=== PATIENT | female | born 1990 | race African-American/Black ===

== ENCOUNTER 2017-03-26 13:19 | Inpatient (IN) | payer MEDICAID, OTHER ==
[2017-03-26] MEDS ORDERED: Morphine 4 MG/ML VIAL ONE ×2 (15:29→18:07)
[2017-03-26 15:43] LABS: #Eosinphils 0.1 thou/uL (0.0-0.7); #Lymphocytes 1.5 thou/uL (1.20-3.40); #Monocytes 0.4 thou/uL (0.11-0.59); %Basophils 0.2 % (0.0-1.0); %Eosinophils 1.1 % (0.0-10.0); %Lymphocytes 14.9 % (21.0-51.0); %Monocytes 3.8 % (0.0-10.0); Hemoglobin 11.7 g/dL (12.0-16.0); Mean Platelet Volume 7.4 fL (7.4-10.4); Platelet Count 218 thou/uL (130-400); RBC Distribution Width 11.9 % (11.5-14.5); Red Blood Cell (RBC) Count 3.65 mill/uL (4.20-5.40)
[2017-03-26 16:03] LABS: ALT (SGPT) 8 U/L (8-55); AST (SGOT) 7 U/L (5-34); Albumin 3.6 g/dL (3.5-5.0); Alkaline Phosphatase 104 U/L (40-150); Anion Gap 13 mmol/L (10-20); BUN (Urea Nitrogen) 5 mg/dL (7.0-18.7); Bilirubin, Total 0.3 mg/dL (0.2-1.2); Calc. Creatinine Clearance 0 mL/min (70-130); Calcium 9.5 mg/dL (7.8-10.44); Carbon Dioxide 20 mmol/L (22-29); Chloride 105 mmol/L (98-107); Estimated GFR-MDRD Greater than 90; Globulin 3.9 g/dL (2.4-3.5); Glucose 203 mg/dL (70-105); Potassium 3.7 mmol/L (3.5-5.1); Protein, Total 7.5 g/dL (6.0-8.3); Sodium 134 mmol/L (136-145)
[2017-03-26] MEDS ORDERED: Clindamycin/D5W 900 mg/50 ml Premix Bag ONE (17:38)
[2017-03-26] MEDS ORDERED: Lidocaine 1% (PF) 30 ML VIAL ONE (17:54)
[2017-03-26] MEDS ORDERED: Piperacillin/Tazobactam 3.375 GM in Sodium Chloride 0.9% 100 ML IVPB ONE (18:00)
[2017-03-26 18:07] LABS: Bilirubin Negative (Negative); Blood, Urine Negative (Negative); Clarity CLOUDY (Clear); Glucose, Urine (Dipstick) 250 mg/dL (Negative); Leukocyte Moderate (Negative); Nitrite Negative (Negative); Protein, Urine (Dipstick) Negative (Neg-Trace); Specific Gravity, Urine 1.027 (1.002-1.036)
[2017-03-26 18:10] LABS: Bacteria/HPF 4+ HPF (None Seen); Hyaline Casts/LPF 4-6 HYALINE CAST LPF (0-3 Hyaline); Pathc Cast-AUWi Flag 1.49 (0-2.49); RBC/HPF 0-3 HPF (0-3); Squamous Epithelial 21-50 HPF (0-3)
[2017-03-26 18:20] LABS: Lactic Acid 1.4 mmol/L (0.5-2.2)
[2017-03-26] MEDS ORDERED: Dextrose 5% in Water 1,000 ML IV PRN (19:06)
[2017-03-26] MEDS ORDERED: HYDROcodone/Acetaminophen 5/325 mg Tablet PO PRN (19:06)
[2017-03-26] MEDS ORDERED: Dextrose 50% Abboject 50 ML SYRINGE SLOW IVP PRN (19:06)
[2017-03-26] MEDS ORDERED: HumaLOG 300 UNITS/3 ML VIAL SC PRN (19:06)
[2017-03-26] MEDS: Sodium Chloride 0.9% 1,000 ML IV SCH (20:09)
[2017-03-26 20:17] VITALS: BMI 34.8
[2017-03-26] MEDS ORDERED: Insulin Detemir 100 UNITS/ML 10 UNITS in Pre-Filled Syringe SC SCH (21:00)
[2017-03-26] MEDS: HYDROcodone/Acetaminophen 10/325 mg Tablet PO PRN (21:17)
--- NOTE | 2017-03-27 00:15 | CON ---
DATE OF CONSULTATION: 03/26/2017 CONSULTING PHYSICIAN: Katerin Masters MD REASON FOR CONSULTATION: Left axillary abscess. HISTORY OF PRESENT ILLNESS: Patient is a 27-year-old diabetic black female. She presents complainin g of severe axillary pain. She has had a history of bilateral prior axillary infections. She notes severe pain in the left axilla with some drainage. She is diabetic with elevated glucose level of 20 3. She is currently 21 weeks . PHYSICAL EXAMINATION: She is afebrile. Vital signs within normal limits. Her left axilla, there is obvious scarring with some tract and sinuses that are apparent. There is evidence of purulent drain age in some areas. Her findings are very typical with hidradenitis suppurativa. It is diffusely ten keyshawn. There is one area that seems to be little more indurated on the anterior aspect. LABORATORY DATA: CBC reveals white blood cell count of 10.0 with hemoglobin of 11.7. ASSESSMENT: Patient with hidradenitis suppurativa. I attempted aspiration of the wound area that se emed to be of concern and I aspirated no purulent fluid. This is an area of surrounding induration r elated to the chronic infection. There is certainly acute infection as well. There does not appear to be any focal area of abscess that I can discern for which she requires an incision and drainage. For now, the treatment will be antibiotics. Unfortunately, this is a frustrating disease that is chr onic and recurring and sometimes even antibiotics do not help with this. The only long-term treatmen t for this is complete axillary excision which is an unpleasant procedure with oftentimes lengthy rec overy. She is being admitted on IV antibiotics at this time. I will see her if there is an exacerba tion or problem, but right now there is nothing surgical to do for this.
[2017-03-27] MEDS: Clindamycin/D5W 900 MG in Premix Bag 1 BAG IVPB SCH ×2 (00:56→09:35)
[2017-03-27] MEDS ORDERED: TAZOBACTAM IVPB SCH (02:00)
[2017-03-27] MEDS ORDERED: PIPERACILLIN IVPB SCH (02:00)
[2017-03-27] MEDS: Piperacillin/Tazobactam 3.375 GM in Sodium Chloride 0.9% 100 ML IVPB SCH ×2 (02:06→10:54)
[2017-03-27 05:41] LABS: #Eosinphils 0.1 thou/uL (0.0-0.7); #Lymphocytes 1.5 thou/uL (1.20-3.40); #Monocytes 0.5 thou/uL (0.11-0.59); #Neutrophils 7.3 thou/uL (1.40-6.50); %Basophils 0.2 % (0.0-1.0); %Eosinophils 1.2 % (0.0-10.0); %Lymphocytes 15.4 % (21.0-51.0); %Monocytes 5.6 % (0.0-10.0); %Neutrophils 77.6 % (42.0-75.0); Hemoglobin 10.5 g/dL (12.0-16.0); Mean Corpuscular HGB CONC 33.1 g/dL (32.0-36.0); Mean Corpuscular Hemoglobin 31.4 pg (27.0-31.0); Mean Corpuscular Volume 94.8 fl (81.0-99.0); Mean Platelet Volume 7.2 fL (7.4-10.4); Platelet Count 208 thou/uL (130-400); RBC Distribution Width 11.8 % (11.5-14.5); Red Blood Cell (RBC) Count 3.36 mill/uL (4.20-5.40); White Blood Cell (WBC) Count 9.4 thou/uL (4.8-10.8)
[2017-03-27 05:48] LABS: Hemoglobin A1c 6.9 % (4.0-6.0)
[2017-03-27] MEDS: HYDROcodone/Acetaminophen 10/325 mg Tablet PO PRN ×2 (05:54→13:03)
[2017-03-27] MEDS: Sodium Chloride 0.9% 1,000 ML IV SCH (05:55)
[2017-03-27 06:07] LABS: Anion Gap 12 mmol/L (10-20); BUN (Urea Nitrogen) 5 mg/dL (7.0-18.7); Calc. Creatinine Clearance 217 mL/min (70-130); Calcium 8.5 mg/dL (7.8-10.44); Carbon Dioxide 19 mmol/L (22-29); Chloride 108 mmol/L (98-107); Estimated GFR-MDRD Greater than 90; Glucose 133 mg/dL (70-105); Potassium 3.6 mmol/L (3.5-5.1); Sodium 135 mmol/L (136-145)
[2017-03-27] MEDS ORDERED: FLU VACC QS2017-18 36 mo. & older 0.5 ML SYRINGE IM ONE (09:00)
--- NOTE | 2017-03-27 09:57 | PDOC.EVN ---
Event Note - Event Note Event Note: DISCHARGE NOTE 03/26/17 Admit 03/27/17 Discharge Patient admitted by Dr Wagner 03/27 for possible hydradentits at axilla and groin. EGA 20 weeks. On IV dual antibiotics. Dr Sellers has seen the patient and no area to drain. OK for outpatient management. Home with Augmentin BID. Has OBGYN and Endo follow up. EGA 20 weeks. Labs: HgB 6.9, WBC 9.4...Glucose 109 this AM. Physical Exam with no evidence systemic infection. No drainable area. Assessment: Possible OB Hydradenitis. 20 week gestation. Home after 24 hours IV antibiotics. Plan: 1. Outpatient Augmentin 875 BID X 10 days 2. Follow up Thursday with Endo 3. Continue Levemir as directed 4. ADA diet
[2017-03-27 12:09] VITALS: BP 123/67; TEMP 97.9
[2017-03-27] MEDS ORDERED: metFORMIN 500 MG TAB PO SCH (17:00)
--- NOTE | 2017-03-27 22:39 | HP ---
DATE OF SERVICE: 03/26/2017 CHIEF COMPLAINT: Axillary and labial cellulitis versus abscess. HISTORY OF PRESENT ILLNESS: At the time of presentation, Ms. Martínez is a 27-year-old 4, para 3 female at [address] Park for care. She has type 1 diabetes and also has a h istory of section for labor at 28 weeks in her last . Patient has a histor y of abscesses in the left axilla and was treated for that as an outpatient a few months ago with res olution. Patient developed 3-day history of pain in her left axilla region extending medially toward s the chest and down the arm approximately 3 days ago as well as pain in the right labia majora. Pat cameron has not had drainage from either of these locations. She denies any fever or chills. She denie s any cardiovascular or respiratory complaints. She denies any vomiting or diarrhea. She denies any hematuria or dysuria. She denies any usual vaginal discharge, itching, odor, or irritation. She de nies any headache, numbness or paresthesias. REVIEW OF SYSTEMS: Per HPI. PAST MEDICAL HISTORY: Type [address] Reno, Endocrinology. PAST SURGICAL HISTORY: section for labor at 28 weeks and breech. OBSTETRIC HISTORY: 1. Term spontaneous vaginal delivery. 2. Term spontaneous vaginal delivery. 3. section 28 weeks, labor for breech. 4. Current . MEDICATIONS: Levemir insulin 10 units at bedtime. ALLERGIES: No known drug allergies. PHYSICAL EXAMINATION: VITAL SIGNS: Within normal limits. Patient is afebrile. GENERAL: Nontoxic appearing female in no acute distress. HEENT: Normocephalic, atraumatic. LUNGS: Clear to auscultation. CARDIOVASCULAR: Regular rate and rhythm. ABDOMEN: Obese, nontender, no rebound, no guarding. GENITOURINARY: The superior portion of the right labia majora is indurated and tender. Erythema has not appreciated. No area of drainage is noted. Area is nonfluctuant. EXTREMITIES: Left axillary region has been examined and attempted incision and drainage was made by General Surgery without result. Please see his detailed dictation. ASSESSMENT AND PLAN: 1. A 21 week live intrauterine . 2. Type 1 diabetes with recurrent cellulitis in the axillary region and now the right labia as well. Patient has received Zosyn and clindamycin in the emergency department and will maintain her on wit h antibiotics. We will also maintain patient on her insulin, but had a sliding scale to improve her control, she states that her blood sugars have been running in the 200 to 300 range. We will reasses s the labia and if abscess develops an incision and drainage is indicated will be performed.
== END 2017-03-27 14:38 | disposition home or self-care (01) | DRG 781 ==
LOC: ERS 13:19 → 3SW 19:05
PROVIDERS: ADMIT Obstetrics & Gynecology Obstetrics; ATTEND Obstetrics & Gynecology Obstetrics
PROC: 0JJV3ZZ Inspection of Upper Extremity Subcutaneous Tissue and Fascia, Percutaneous Approach (ICD-10-PCS; principal; 2017-03-26)
DX: O23.592 Infection of other part of genital tract in pregnancy, second trimester (principal); O24.012 Pre-existing type 1 diabetes mellitus, in pregnancy, second trimester; E10.9 Type 1 diabetes mellitus without complications; L02.412 Cutaneous abscess of left axilla; L03.112 Cellulitis of left axilla; F17.210 Nicotine dependence, cigarettes, uncomplicated; L73.2 Hidradenitis suppurativa; O99.332 Smoking (tobacco) complicating pregnancy, second trimester; Z3A.21 21 weeks gestation of pregnancy; Z79.4 Long term (current) use of insulin
CPT/HCPCS: 36415; 36416; 80048; 80053; 81003; 81015; 83036; 83605; 85025; 85652; 86140; 87040; 87086; 96361; 96365; 96367; 96375; 96376; A4216; J1815; J2001; J2270; J2543; J3490; J7050

== ENCOUNTER 2017-05-10 20:55 | Inpatient (IN) | payer OTHER ==
[~2017-05-10 20:55] MED LIST: Glycopyrrolate 0.2 MG/ML 5 ML SYRINGE ONE; Ondansetron HCl/PF 4 MG/2 ML Vial ONE; PROPOFOL 200 MG/20 ML VIAL ONE; Succinylcholine Chloride 20 MG/ML 10 ml SYRINGE FS ONE
[2017-05-10 21:19] VITALS: BMI 35.0
--- NOTE | 2017-05-10 21:43 | PDOC.LDHP ---
Labor and Delivery H&P HPI: 27 year old AA female with contactions at [address] Park at the [facility] She was 1cm last week and he gave her steroids and mag. Now with VB, no ROM. Bedside sono by me is good featl HR, head in left lower quadrant, back down transverse. Prior CS at 29 weeks in 2010- cannot get report. Per per...Patient is "Diabetic". She is on levamir 10 units at night. Current gestational age (weeks): 27 Due date: 08/08/17 Dating criteria: last menstrual period Grav: 4 Para: 3 (CS X1) Current complications: pregestational diabetes Previous surgical history: none (CS unknown incisioion type in 2010 for 29 week breech) Allergies/Adverse Reactions: Allergies Allergy/AdvReac Type Severity Reaction Status Date / Time No Known Allergies Allergy Verified 05/10/17 21:16 Social history: none - Physical Exam Vital signs reviewed and normal: yes General: NAD Abdomen: gravid FHT: category 1 - Vaginal Exam cm dilated: 3 - Assessment L&D Assessment: scheduled repeat section - Plan Plan: admit to L&D, anesthesia consult for pain management (DM on Levamir 10units QHS. Dsticks Follow sugars pp get Dstick now)
[2017-05-10] MEDS ORDERED: Promethazine HCl 25 MG/ML VIAL IM PRN ×2 (21:48→23:11)
[2017-05-10] MEDS ORDERED: Ondansetron HCl/PF 4 MG/2 ML Vial IVP PRN ×3 (21:48→23:12)
[2017-05-10] MEDS ORDERED: PHENYLEPHRINE-NS 100 MCG/ML 10 ML SYRINGE ONE (21:53)
[2017-05-10] MEDS ORDERED: Morphine PF 1 MG/ML SYR ONE (21:53)
[2017-05-10] MEDS ORDERED: Dexamethasone 4 mg/ml Vial ONE (21:53)
[2017-05-10] MEDS ORDERED: Oxytocin 10 UNITS/ML VIAL ONE ×3 (21:53→22:29)
[2017-05-10] MEDS ORDERED: Succinylcholine Chloride 20 MG/ML 10 ml SYRINGE FS ONE (21:56)
[2017-05-10] MEDS ORDERED: PROPOFOL 20 ML ONE ×2 (21:56→22:58)
[2017-05-10] MEDS ORDERED: Bicitra 30 ML UDCUP PO SCH (22:00)
[2017-05-10] MEDS ORDERED: CEFAZOLIN/Water 2 GM/20 ML SYRINGE SLOW IVP SCH (22:00)
[2017-05-10] MEDS ORDERED: Midazolam HCl 2 mg/2 ml Vial ONE (22:06)
[2017-05-10] MEDS ORDERED: Fentanyl 250 MCG/5 ML VIAL ONE (22:06)
[2017-05-10] MEDS ORDERED: CEFAZOLIN 1 GM VIAL ONE (22:09)
[2017-05-10 22:22] LABS: Hemoglobin 12.3 g/dL (12.0-16.0); Mean Corpuscular HGB CONC 34.5 g/dL (32.0-36.0); Mean Corpuscular Hemoglobin 31.1 pg (27.0-31.0); Mean Corpuscular Volume 90.2 fl (81.0-99.0); Mean Platelet Volume 7.6 fL (7.4-10.4); Platelet Count 191 thou/uL (130-400); RBC Distribution Width 12.5 % (11.5-14.5); Red Blood Cell (RBC) Count 3.95 mill/uL (4.20-5.40); White Blood Cell (WBC) Count 7.6 thou/uL (4.8-10.8)
[2017-05-10 22:30] LABS: Hemoglobin A1c 7.1 % (4.0-6.0)
[2017-05-10] MEDS ORDERED: Azithromycin 500 MG in Sodium Chloride 0.9% 250 ML 250 ML IVPB SCH (22:30)
[2017-05-10 23:00] LABS: Syphilis Antibody Nonreactive (Nonreactive); Syphilis Antibody Index 0.07 S/CO (<1.00 Non-Reactive)
[2017-05-10] MEDS ORDERED: Glycopyrrolate 0.2 MG/ML 5 ML SYRINGE ONE (23:00)
[2017-05-10] MEDS ORDERED: diphenhydrAMINE 50 MG/ML VIAL IVP PRN (23:11)
[2017-05-10] MEDS ORDERED: diphenhydrAMINE 50 MG/ML VIAL IM PRN (23:11)
[2017-05-10] MEDS ORDERED: diphenhydrAMINE 25 MG CAP PO PRN (23:11)
[2017-05-10] MEDS ORDERED: Naloxone HCl 0.4 mg/ml Vial IV PRN (23:11)
[2017-05-10] MEDS ORDERED: Zolpidem Tartrate 5 MG TAB PO PRN (23:11)
[2017-05-10] MEDS ORDERED: Fentanyl 5000 MCG/250 ML CADD IVPB PRN (23:11)
[2017-05-10] MEDS ORDERED: HYDROmorphone 2 MG/ML VIAL SLOW IVP PRN (23:12)
[2017-05-10] MEDS ORDERED: Meperidine HCl/PF 25 MG/ML VIAL SLOW IVP PRN (23:12)
[2017-05-10] MEDS ORDERED: Acetaminophen/Codeine 30-300mg Tablet PO PRN ×2 (23:13)
[2017-05-10] MEDS ORDERED: Adacel (T-DAP) 0.5 ML VIAL IM ONE (23:13)
[2017-05-10] MEDS ORDERED: Measles/Mumps/Rubella 10 MCG/0.5 ML VIAL SC ONE (23:13)
[2017-05-10] MEDS ORDERED: Varicella virus, LIVE 0.5 ML VIAL SC ONE (23:13)
[2017-05-10] MEDS ORDERED: Lanolin Ointment 7 GM TUBE TOP PRN (23:13)
[2017-05-10] MEDS ORDERED: Communication Order-Pharmacy FS SCH (23:15)
[2017-05-10] MEDS ORDERED: Ketorolac Tromethamine 30 MG/ML VIAL IVP SCH (23:15)
--- NOTE | 2017-05-10 23:21 | PDOC.OP ---
Operative Note - Operative Note Operative Note: Please see dicated Op Note: labor, back down transverse, hand through cx and through hysterotomy ( right through CX, left through hysterotomy). procedure: LTCS via pfannestiel with vertiacl uterine extension. GETA Ancef/Zmax given. Nicu present. [place] male. Placenta and hgas sent EBL 800ml IVF 1000ml UOP 350ml
[2017-05-10 23:30] LABS: Actual Bicarbonate (HCO3a) 25.6 mEq/L (22-26); Analyzer IN Cardio OR; Base Excess (BEa) -0.9 mEq/L (0 (+/-) 2.5)
[2017-05-10] MEDS ORDERED: fentaNYL Citrate/PF 2,000 MCG in Sodium Chloride 0.9% 60 ML IV PRN (23:30)
--- NOTE | 2017-05-10 23:32 | PDOC.EVN ---
Event Note - Event Note Event Note: Baby Check: baby stable in NICU. Wt 1000Kg. Gas 7.3 (umbilical artery). I d/w the mother the significant of a T uterine incision.
[2017-05-10 23:52] LABS: HBSAg Index 0.15 S/CO (0-0.99); HIV (1/2) Antibody/Antigen Non-Reactive (NonReactive); Hep B Surf Ag Non-Reactive S/CO (NonReactive)
--- NOTE | 2017-05-11 02:47 | OP ---
DATE OF SERVICE: 05/10/2017 NOTE LOCATION: [facility] Labor and Delivery operating room. PREOPERATIVE DIAGNOSES: 1. Patient with a prior that was performed at 29 weeks now at 27 weeks with active labor. 2. Uncontrolled diabetes mellitus (prepregnancy existing). 3. back down transverse lie with arm presentation through cervix. POSTOPERATIVE DIAGNOSES: 1. Patient with a prior that was performed at 29 weeks now at 27 weeks with active labor. 2. Omental adhesions to the anterior abdominal wall and anterior uterine serosa. PROCEDURES: 1. Repeat low transverse under Pfannenstiel incision. 2. Vertical hysterotomy extension (inverted T incision). 3. Lysis of adhesions. SURGEON: You Heredia M.D. FLOOR CLERK: Woo Philip MD with the family medicine program. ANESTHESIA: General. ANTIBIOTICS: Ancef preincision and Zithromax 500 mg given additional prophylaxis. PEOPLE IN ATTENDANCE: NICU. FINDINGS: 1. Upon entrance into the abdominal cavity, there was omental adhesions from the abdomen to the ante rior fascial wall and to the anterior uterine serosa. 2. Baby's head was in the left lower quadrant, baby's back was down towards the cervix, and one arm had prolapsed through the cervix, the other arm prolapsed through the hysterotomy after creation of t he low transverse hysterotomy. 3. Anterior placenta. 4. Hemostasis after repair of the inverted T extension. ESTIMATED BLOOD LOSS: 800 mL. IV FLUIDS: One-liter crystalloid. URINE OUTPUT: Cueva approximately 350 mL. COMPLICATIONS: 1. The uterine incision had to be extended vertically in a classical fashion due to the back d own transverse position. 2. Baby was handed to the NICU team, who evaluated the baby. Baby was stable, but no Apgars were gi raegan. I will follow up with the Apgars after this dictation. 3. Hemostasis post-procedure. TECHNIQUE: After informing the patient of the findings in Labor and Delivery room #2, baby in the tr ansverse position with the head in the lower quadrant and suspected hand through the cervix, which wa s felt vaginally, we proceeded with the repeat . Patient was taken to the OR in Labor and D elivery, where she was placed under general endotracheal anesthesia. Next, a Pfannenstiel incision w as made in the area of the old scar. The old scar was not removed. Next, using Bovie cautery on cut mode, the subcutaneous tissue was dissected down to the level of fascia. Fascia was identified, lory aned off any overlying fatty tissue and entered with Bovie cautery on cut mode in a transverse fashio n. Care was taken to avoid underlying structures. The rectus muscles were off the fascia both superiorly and inferiorly off the midline. Dense omental adhesions were then noted underneath t he fascial edge and these were lysed with Bovie cautery on cut mode. Hemostasis was assured. Adhesi ons were also noted at the anterior lower uterine segment, and these were lysed with Bovie cautery on cut mode. An Adal O retractor was then able to be placed into the wound for retraction. A low-tr ansverse hysterotomy was made with the placenta noted at that site. Palpation of the body reve aled the head to be not accessible, as there was in the left lower quadrant. I was not able to easil y access the feet through the low transverse incision, and so I extended the incision with bandage sc issors vertically in an inverted T fashion. At this point, I was able to locate the baby's buttocks and delivered the baby breech. There was a body cord x1 that was loose. Cord was clamped, transecte d, and the baby was handed to the nursery team that was present. Here, are the times for the surgery: Skin was at 2211, uterine incision was at 2217, baby was at 222 0. After the baby was delivered and after the placenta was removed from the cavity, the placenta was sent to pathology. A cord gas was also sent and results are pending. The uterus was repaired in mu ltiple layers using #1 Vicryl in a running locking fashion. The vertical incision was closed in two layers. The low transverse incision was closed in a single layer. No bleeding was noted after closu re. Copious irrigation revealed hemostasis. We then closed the rectus muscles in the midline, patience mcdermott sure bowel was away from our closure, these were interrupted sutures of 2-0 chromic in interrupted fashion to bring the rectus muscles together. Fascia was closed with 0 PDS in one continuous running nonlocking suture. Subcutaneous tissue was copiously irrigated and the subcutaneous tissue was clos ed with 3-0 plain gut. We then closed the skin with henrry in the usual manner. We will check the patient's sugars postoperatively and .
[2017-05-11 05:40] LABS: Hemoglobin 9.9 g/dL (12.0-16.0); Mean Corpuscular HGB CONC 33.1 g/dL (32.0-36.0); Mean Corpuscular Hemoglobin 30.2 pg (27.0-31.0); Mean Corpuscular Volume 91.1 fl (81.0-99.0); Mean Platelet Volume 7.6 fL (7.4-10.4); Platelet Count 197 thou/uL (130-400); RBC Distribution Width 12.4 % (11.5-14.5); Red Blood Cell (RBC) Count 3.27 mill/uL (4.20-5.40); White Blood Cell (WBC) Count 11.9 thou/uL (4.8-10.8)
[2017-05-11] MEDS ORDERED: Insulin Regular 300 UNITS/3 ML VIAL SC SCH (05:45)
[2017-05-11] MEDS: Lactated Ringer's 1,000 ML IV SCH ×4 (05:59→17:04)
[2017-05-11] MEDS: Simethicone Chewable 80 MG TAB PO PRN ×3 (06:06→22:16)
--- NOTE | 2017-05-11 06:11 | PDOC.PP ---
Post Progress Note Post Day #: 0 to 1 Subjective: Doing well, brooke her clears. PO intake tolerated: yes Flatus: yes Vital Signs (12 hours) Temp Pulse Resp BP BP Pulse Ox 05/11/17 04:45 106 H 20 121/70 05/11/17 03:45 98.7 F 110 H 20 111/61 96 05/11/17 02:45 98.5 F 104 H 20 115/67 99 05/11/17 01:45 99.1 F 97 20 128/72 96 05/10/17 21:39 98.5 F 104 H 20 05/10/17 21:15 98.6 F 91 18 133/69 Weight Weight 204 lb - Physical Examination General: NAD Cardiovascular: no m/r/g Respiratory: clear to auscultation bilaterally Abdominal: + bowel sounds, lochia, no distention, appropriately TTP Extremities: negative homans (B) Result Diagrams: 05/11/17 05:15 Additional Labs: Post Labs Blood Type A POSITIVE 05/10/17 22:12 Hep Bs Antigen Non-Reactive S/CO (NonReactive) 05/10/17 22:12 Fasting Blood Sugar this AM 242 Hemoglobin A1c 7.1 (1) Delivery by emergency section Code(s): O82 - ENCOUNTER FOR DELIVERY WITHOUT INDICATION Status: Acute (2) Diabetes Code(s): E11.9 - TYPE 2 DIABETES MELLITUS WITHOUT COMPLICATIONS Status: Acute Qualifiers: Diabetes mellitus type: type 2 Diabetes mellitus complication status: without complication - Assessment/Plan POD #1 this PM. Fasting sugar was 242 this am so I ordered 6 units regular (brooke clears). We will recheck this AM. Tonight we will start Levamir 5u QHS (half her usual dose). Gamaliel in place under dressing. HbAic was 7.1 Afebrile but TMax was 99...follow.
--- NOTE | 2017-05-11 06:22 | PDOC.EVN ---
Event Note - Event Note Event Note: Sliding scale regular insulin ordered this AM for prn use
[2017-05-11] MEDS: Ibuprofen 800 MG TAB PO SCH ×2 (07:20→14:31)
--- NOTE | 2017-05-11 08:04 | PDOC.EVN ---
Event Note - Event Note Event Note: D/W NICU...Baby stable and doing well. Will stay with [facility] team.
[2017-05-11] MEDS ORDERED: FLU VACC QS2017-18 36 mo. & older 0.5 ML SYRINGE IM ONE (09:00)
[2017-05-11] MEDS ORDERED: Ketorolac Tromethamine 30 MG/ML VIAL IVP PRN (09:18)
[2017-05-11] MEDS: Prenatal Vitamin 1 TAB PO SCH (10:20)
[2017-05-11] MEDS ORDERED: fentaNYL Citrate/PF 2,000 MCG in Sodium Chloride 0.9% 60 ML IV PRN (12:38)
[2017-05-11] MEDS ORDERED: Ketorolac Tromethamine 30 MG/ML VIAL IVP SCH (13:00)
[2017-05-11] MEDS: Acetaminophen 1,000 MG in Premix Bag 1 BAG IVPB SCH ×2 (13:42→19:11)
[2017-05-11] MEDS: Insulin Regular 300 UNITS/3 ML VIAL SC PRN ×2 (14:54→19:12)
[2017-05-11] MEDS: Ketorolac Tromethamine 30 MG/ML VIAL IVP SCH ×2 (16:59→22:16)
[2017-05-11] MEDS ORDERED: Insulin Detemir 100 UNITS/ML 5 UNITS in Pre-Filled Syringe 1 EACH SC SCH (21:00)
[2017-05-12] MEDS: Ibuprofen 800 MG TAB PO SCH ×3 (00:01→16:17)
[2017-05-12] MEDS: Acetaminophen 1,000 MG in Premix Bag 1 BAG IVPB SCH ×2 (01:45→08:16)
[2017-05-12] MEDS: Ketorolac Tromethamine 30 MG/ML VIAL IVP SCH ×2 (04:12→10:06)
[2017-05-12] MEDS: Simethicone Chewable 80 MG TAB PO PRN (04:13)
[2017-05-12] MEDS: Lactated Ringer's 1,000 ML IV SCH ×3 (06:14→22:43)
--- NOTE | 2017-05-12 08:57 | PRG ---
DATE OF ENCOUNTER: 05/12/2017 PRIMARY OB: Dr. Park. SUBJECTIVE: The patient is a 27-year-old female, now postoperative day 2, status post a primary C-se ction at 27 weeks for labor and abnormal lie, transverse lie. The patient's postoperat darrian course has been complicated by elevated blood sugars due to her diabetes. She reports that she i s tolerating p.o. well, ambulating, voiding on her own, having good pain control. OBJECTIVE: VITAL SIGNS: Blood pressure today is 92/54, pulse of 101, temperature 98.6, respiratory rate of 16, satting 96% on room air. GENERAL: The patient appears to be in no acute distress. She is alert and oriented and cooperative and pleasant to interact with. HEENT: Head is normocephalic, atraumatic. ABDOMEN: Fundus is firm. Incision is clean, dry, and intact with henrry. EXTREMITIES: Nontender, nonedematous. LABORATORY DATA: Blood sugar this morning fasting was 110. Blood sugars yesterday have all been dori vated in the 200 range from 213 to 242 and had received a total of 24 units of regular insulin in add ition to 5 units of Levemir. ASSESSMENT AND PLAN: The patient is a 27-year-old female with diabetes postoperative day 2, status p ost a primary at 27 weeks for labor and transverse lie. We will need to make some adjustments to her regimen. She currently has been on Levemir 5 units a day and sliding scale. The patient reports before she was she was on 10 units of Levemir at night. Given her 24 units of consumption over the last 24 hours, I will increase her Levemir. We will put her on 10 units and keep her on sliding scale. Anticipate discharge on .
[2017-05-12] MEDS: Prenatal Vitamin 1 TAB PO SCH (09:29)
[2017-05-12] MEDS: Insulin Regular 300 UNITS/3 ML VIAL SC PRN ×2 (12:21→21:00)
[2017-05-12] MEDS ORDERED: HYDROcodone/Acetaminophen 5/325 mg Tablet PO PRN (12:54)
[2017-05-12] MEDS: HYDROcodone/Acetaminophen 5/325 mg Tablet PO PRN (13:01)
[2017-05-12] MEDS: Insulin Detemir 100 UNITS/ML 10 UNITS in Pre-Filled Syringe 1 EACH SC SCH (21:00)
[2017-05-13] MEDS: HYDROcodone/Acetaminophen 5/325 mg Tablet PO PRN ×2 (00:10→20:24)
[2017-05-13] MEDS: Ibuprofen 800 MG TAB PO SCH ×4 (00:11→18:35)
[2017-05-13] MEDS: Lactated Ringer's 1,000 ML IV SCH ×2 (06:19→14:21)
--- NOTE | 2017-05-13 06:45 | PDOC.PP ---
Post Progress Note Post Day #: 3 Subjective: Doing well without complaints. PO intake tolerated: yes Flatus: yes Ambulation: yes Vital Signs (12 hours) Temp Pulse Resp BP Pulse Ox 05/13/17 00:10 98.0 F 106 H 18 111/64 05/12/17 20:35 98.4 F 110 H 18 124/73 98 Weight Weight 204 lb - Physical Examination General: NAD Respiratory: non-labored breathing Abdominal: lochia (normal), no distention, appropriately TTP Fundus firm & at: u-3 Extremities: negative homans (B) Skin: CS incision dry & intact, no rash Neurological: no gross focal deficits Psychiatric: A&Ox3, normal affect Result Diagrams: 05/11/17 05:15 Additional Labs: Post Labs Blood Type A POSITIVE 05/10/17 22:12 Hep Bs Antigen Non-Reactive S/CO (NonReactive) 05/10/17 22:12 (1) Delivery by emergency section Code(s): O82 - ENCOUNTER FOR DELIVERY WITHOUT INDICATION Status: Acute (2) Diabetes Code(s): E11.9 - TYPE 2 DIABETES MELLITUS WITHOUT COMPLICATIONS Status: Acute Qualifiers: Diabetes mellitus type: type 2 Diabetes mellitus complication status: without complication - Assessment/Plan Levimir increased last night to 10u. FBS improved this morning. Continue to monitor postprandial sugars today. Anticipate d/c tomorrow. Wishes to discuss Jose Slaughter, will have rep meet with her.
[2017-05-13] MEDS: Prenatal Vitamin 1 TAB PO SCH (08:17)
--- NOTE | 2017-05-13 08:59 | PDOC.EVN ---
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 Now on Levemir 10units QHS and first was last night. This fasting BS was 92. We will continue to monitor sugars today. Continue ADA.
--- NOTE | 2017-05-13 09:51 | PDOC.EVN ---
Event Note - Event Note Event Note: @6930: Patient sen at bedside, doing well. Pumping. Ibeth po. Aware that we will follow DSticks today. D/U Adebayo..baby with posible premature lung DZ..will follow. Mother to stay at [facility] after [facility].
[2017-05-13] MEDS: Insulin Regular 300 UNITS/3 ML VIAL SC PRN ×2 (10:21→20:23)
[2017-05-13] MEDS: Insulin Detemir 100 UNITS/ML 10 UNITS in Pre-Filled Syringe 1 EACH SC SCH (22:03)
[2017-05-14] MEDS: Ibuprofen 800 MG TAB PO SCH ×2 (00:22→06:34)
[2017-05-14] MEDS: Lactated Ringer's 1,000 ML IV SCH (00:22)
--- NOTE | 2017-05-14 06:28 | PDOC.PP ---
Post Progress Note Post Day #: 4 Subjective: Doing well. Will stay in [facility] after today's discharge PO intake tolerated: yes Flatus: yes Ambulation: yes Vital Signs (12 hours) Temp Pulse Resp BP Pulse Ox 05/13/17 20:05 98.2 F 90 18 122/78 98 Weight Weight 204 lb - Physical Examination General: NAD Cardiovascular: no m/r/g Respiratory: clear to auscultation bilaterally Abdominal: + bowel sounds Extremities: negative homans (B) Skin: CS incision dry & intact (henrry in use) Neurological: no gross focal deficits Result Diagrams: 05/11/17 05:15 Additional Labs: Post Labs Blood Type A POSITIVE 05/10/17 22:12 Hep Bs Antigen Non-Reactive S/CO (NonReactive) 05/10/17 22:12 (1) Delivery by emergency section Code(s): O82 - ENCOUNTER FOR DELIVERY WITHOUT INDICATION Status: Acute (2) Diabetes Code(s): E11.9 - TYPE 2 DIABETES MELLITUS WITHOUT COMPLICATIONS Status: Acute Qualifiers: Diabetes mellitus type: type 2 Diabetes mellitus complication status: without complication - Assessment/Plan Stable for discharge. Sugars better but had a high value last night. I discussed with her that she will continue her Levemir 10 units at night and use SSI (regular). She will follow up with Alessandro for staple removal tomorrow and he can adjust or refer for continued DM support. ADA discussed with her.
--- NOTE | 2017-05-14 06:33 | PDOC.EVN ---
Event Note - Event Note Event Note: DISCHARGE NOTE Patient of Dr Albarado who presented to L&D on my last call day with vaginal bleeding and contractions at 27 weeks. By her report, she had recieved steroids at [facility] earlier. HX preexisting DM on Levemir.Sono revealed back down transerve position with hand palp through cervix. She underwent urgent repeat CS with resulting T uterine incision. she remained afebrile. Sugars reuired SSI (regular) at times. Levemir was restarted at 10 units every night. She will have her henryr removed 05/[address] albarado and he may refer for DM continued support. Child still in NICU with some respiratory changes of prematurity. Procedures: Urgent repeat CS (T incision) Diagnosis: 1. labor 2. malpresentation 3. CS delivery 4. Preexisting DM
[2017-05-14 08:41] VITALS: BP 142/85; TEMP 98.3
== END 2017-05-14 09:12 | disposition home or self-care (01) | DRG 765 ==
LOC: L&D/OP 20:55 → L&D 21:50 → 3SW 05-11 01:45
PROVIDERS: ADMIT Obstetrics & Gynecology; ATTEND Obstetrics & Gynecology
PROC: 10D00Z0 Extraction of Products of Conception, High, Open Approach (ICD-10-PCS; principal; 2017-05-11)
DX: O60.12X0 Preterm labor second trimester with preterm delivery second trimester, not applicable or unspecified (principal); O24.12 Pre-existing type 2 diabetes mellitus, in childbirth; Z3A.27 27 weeks gestation of pregnancy; Z37.0 Single live birth; E11.9 Type 2 diabetes mellitus without complications; O34.211 Maternal care for low transverse scar from previous cesarean delivery; O32.2XX0 Maternal care for transverse and oblique lie, not applicable or unspecified; Z79.4 Long term (current) use of insulin
CPT/HCPCS: 36415; 36416; 51702; 76815; 82805; 83036; 85027; 86780; 86850; 86900; 86901; 87340; 87389; 88307; 99285; J0131; J0456; J0690; J1100; J1815; J1885; J2250; J2274; J2405; J2590; J2704; J3010; J7050

== ENCOUNTER 2024-01-08 22:32 | Emergency (ER) | payer SELFPAY ==
[2024-01-08 23:05] LABS: #Basophils 0.05 10x3/uL (0.0-0.2); %Basophils 0.8 % (0.0-1.0); %Eosinophils 2.3 % (0.0-10.0); %Lymphocytes 32.3 % (21.0-51.0); %Monocytes 6.4 % (0.0-10.0); Actual Bicarbonate (HCO3v) 21.6 mEq/L (22-28); Analyzer IN Cardio ER; Base Excess -3.2 mEq/L (-2.0 to +3.0); Calcium, Ionized (venous) 1.06 mmol/L (1.16-1.32); Chloride (VBG) 104 mmol/L (98-106); Hematocrit 32.7 % (36.0-47.0); Hematocrit-VBG 35 % (36.0-47.0); Hemoglobin 10.8 g/dL (12.0-16.0); Mean Corpuscular Hemoglobin 27.1 pg (27.0-31.0); Mean Corpuscular Volume 82.2 fL (78.0-98.0); Mean Platelet Volume 10.1 fL (7.4-10.4); Platelet Count 251 10x3/uL (130-400); Potassium (VBG) 4.02 mmol/L (3.70-5.30); RBC Distribution Width 15.2 % (11.5-14.5); Red Blood Cell (RBC) Count 3.98 mill/uL (4.20-5.40); Sodium 138 mmol/L (133-146); pH (venous) 7.375 (7.32-7.43)
[2024-01-08 23:20] LABS: Lipase 25 U/L (8-78)
[2024-01-08 23:22] LABS: Acetaminophen Less than 10 mcg/mL (Less than 10); Alcohol 167.6 mg/dL (Less than 10); Salicylate Less than 8.0 mg/dL (Less than 8.0)
[2024-01-08 23:26] LABS: BHCG - Serum Negative (NEGATIVE); Pregs Control Background? CLEAR/WHITE (CLR/WHITE); Pregs Control Bar Appear? YES (CONTROL BAR)
[2024-01-08 23:27] LABS: ALT (SGPT) 14 U/L (8-55); AST (SGOT) 12 U/L (5-34); Albumin 3.4 g/dL (3.5-5.0); Alkaline Phosphatase 111 U/L (40-110); Anion Gap 12 mmol/L (10-20); BUN (Urea Nitrogen) 4 mg/dL (7.0-18.7); Bilirubin, Total 0.3 mg/dL (0.2-1.2); Calc. Creatinine Clearance 0 mL/min (70-130); Calcium 8.4 mg/dL (7.8-10.44); Carbon Dioxide 22 mmol/L (22-29); Chloride 105 mmol/L (98-107); Estimated GFR 101; Globulin 3.6 g/dL (2.4-3.5); Glucose 416 mg/dL (70-105); Sodium 135 mmol/L (136-145)
[2024-01-09] LABS: Amphetamine Not Detected (NotDetected); Barbiturates Screen Not Detected (NotDetected); Benzodiazepine Screen Not Detected (NotDetected); Cocaine Metabolite Screen Not Detected (NotDetected); Methadone Not Detected (NotDetected); Methamphetamine Not Detected (NotDetected); Opiate Screen Not Detected (NotDetected); Oxycodone Screen Not Detected (NotDetected); Phencyclidine (PCP) Not Detected (NotDetected); THC/Cannabinoid Screen Not Detected (NotDetected); Tricyclic Screen Not Detected (NotDetected)
[2024-01-09] MEDS ORDERED: Insulin Regular, Human 100 UNIT/ML 10 ML VIAL ONE (00:07)
[2024-01-09 00:58] LABS: Bacteria/HPF None Seen HPF (None Seen); Bilirubin Negative (Negative); Blood, Urine Negative (Negative); CAUTI Indications for Culture Alt mental st,lethar; Clarity Clear (Clear); Glucose, Urine (Dipstick) Greater than 1000 mg/dL (Negative); Ketone, Urine Negative (Negative); Leukocyte Negative Leu/uL (Negative); Nitrite Negative (Negative); Protein, Urine (Dipstick) Negative (Neg-Trace); RBC/HPF 0-3 HPF (0-3); Specific Gravity, Urine 1.017 (1.002-1.036); Squamous Epithelial 0-3 HPF (0-3); Urobilinogen Normal mg/dL (Less than 2); WBC/HPF 0-3 HPF (0-3)
[2024-01-09 00:59] LABS: Urine Culture Reflex No No
== END 2024-01-09 01:00 | disposition home or self-care (01) ==
LOC: ERS 22:32
DX: E11.65 Type 2 diabetes mellitus with hyperglycemia (principal); F10.129 Alcohol abuse with intoxication, unspecified; F17.210 Nicotine dependence, cigarettes, uncomplicated; E78.5 Hyperlipidemia, unspecified; Z79.4 Long term (current) use of insulin; Z55.0 Illiteracy and low-level literacy; Z79.899 Other long term (current) drug therapy
CPT/HCPCS: 36415; 36416; 80053; 80306; 80307; 81001; 82010; 82805; 83605; 83690; 83930; 84703; 85025; 93005; 99285; J1815